=== PATIENT | male | born 1980 | race Caucasian/White ===

== ENCOUNTER 2016-08-23 19:12 | Outpatient (CLI) | payer OTHER, MEDICAID | END 2016-08-23 19:13 | disposition home or self-care (01) | LOC: LAB 19:12 | DX: Z01.89 Encounter for other specified special examinations (principal) | CPT/HCPCS: 36415 ==

== ENCOUNTER 2018-06-09 07:51 | Outpatient (CLI) | payer MEDICAID | END 2018-06-09 07:52 | disposition critical access hospital (66) | LOC: EMS 07:51 | PROVIDERS: ATTEND Surgery | DX: S05.92XA Unspecified injury of left eye and orbit, initial encounter (principal); W22.8XXA Striking against or struck by other objects, initial encounter; Y93.01 Activity, walking, marching and hiking; Y92.821 Forest as the place of occurrence of the external cause | CPT/HCPCS: A0425; A0429; A0999 ==

== ENCOUNTER 2018-06-09 08:09 | Emergency (ER) | payer MEDICAID ==
[2018-06-09] MEDS ORDERED: PROPARACAINE 0.5% OPHTH DROPS 15 ML LEFTEYE STA (08:18)
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
--- NOTE | 2018-06-09 09:15 | CT Report ---
Reason: trauma to left eye Procedure Date: 06/09/2018 Accession Number: [id number] / [id number] Procedure: CT - ORBITS WO CPT Code: FULL RESULT: EXAM: CT MAXILLOFACIAL WITHOUT CONTRAST EXAM DATE: 06/09/2018 08:57 AM. CLINICAL HISTORY: Trauma to left eye. COMPARISONS: None. TECHNIQUE: Thin-section axial images were acquired of the face without contrast. Post-processing: Coronal and sagittal reformats. Other: None. In accordance with CT protocol optimization, one or more of the following dose reduction techniques were utilized for this exam: automated exposure control, adjustment of mA and/or KV based on patient size, or use of iterative reconstructive technique. FINDINGS: Soft Tissue: The infratemporal fossa and parapharyngeal spaces are unremarkable. Orbits: Left intraocular multi-particulate foreign bodies with overall retention of the globe contours. Soft tissue swelling and possible subcutaneous air left orbit negative right eye.. Bones: No fracture or bone lesion. Temporomandibular Joints: The temporomandibular joints are symmetric and normally located. Sinuses: Normal. No mucosal thickening or fluid levels. Other: Mastoid air cells and middle ear cavities normally aerated. Nasopharyngeal soft tissues not enlarged. IMPRESSION: Multi-particulate intraocular foreign bodies left eye. RADIA
[2018-06-09 10:48] VITALS: BP 129/74
[2018-06-09] MEDS ORDERED: oxyCODONE 5 MG TABLET PO STA (11:03)
== END 2018-06-09 11:11 | disposition home or self-care (01) ==
LOC: EDUNIT# → ED 08:09
DX: S05.12XA Contusion of eyeball and orbital tissues, left eye, initial encounter (principal); W22.8XXA Striking against or struck by other objects, initial encounter; Z59.0 Homelessness
CPT/HCPCS: 70480; 99283; A9270; J3490

== ENCOUNTER 2019-04-30 02:36 | Observation (INO) | payer MEDICAID ==
[2019-04-30] MEDS ORDERED: SODIUM CHLORIDE 0.9% 1,000 ML IV ONE ×3 (02:44→04:57)
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
[2019-04-30] MEDS ORDERED: LORazepam 2 MG/ML VIAL ONE (02:46)
[2019-04-30] MEDS ORDERED: LORazepam 2 MG/ML VIAL IVP STA ×4 (02:48→09:58)
[2019-04-30 02:51] LABS: BASOPHILS # (AUTO) 0.1 10^3/uL (0.0-0.1); BASOPHILS % (AUTO) 0.3 %; EOSINOPHILS # (AUTO) 0.1 10^3/uL (0.0-0.7); EOSINOPHILS % (AUTO) 0.8 %; HGB - HEMOGLOBIN 14.9 g/dL (14.0-18.0); LYMPHOCYTES # (AUTO) 1.6 10^3/uL (1.5-3.5); MEAN CORPUSCULAR HGB CONC 32.8 g/dL (32.0-36.0); MEAN CORPUSCULAR VOLUME 97.6 fL (80.0-94.0); MONOCYTES # (AUTO) 0.9 10^3/uL (0.0-1.0); MONOCYTES % (AUTO) 5.6 %; NEUTROPHILS # (AUTO) 13.1 10^3/uL (1.5-6.6); NEUTROPHILS % (AUTO) 82.7 %; PLT - PLATELET COUNT 367 10^3/uL (130-450); RED BLOOD COUNT 4.65 10^6/uL (4.70-6.10); RED CELL DISTRIBUTION WIDTH 12.9 % (12.0-15.0); WHITE BLOOD COUNT 15.9 x10^3/uL (4.8-10.8)
[2019-04-30 03:07] LABS: ACETAMINOPHEN < 10 ug/mL (10-30); ALBUMIN 4.6 g/dL (3.2-5.5); ALBUMIN/GLOBULIN RATIO 1.7 (1.0-2.2); ALKALINE PHOSPHATASE 50 IU/L (42-121); ALT ALANINE AMINOTRANSFERASE 20 IU/L (10-60); AST ASPARTATE AMINOTRANSFERASE 29 IU/L (10-42); BILIRUBIN,TOTAL 0.7 mg/dL (0.2-1.0); BUN - BLOOD UREA NITROGEN 17 mg/dL (6-20); CALCIUM 9.5 mg/dL (8.5-10.3); CARBON DIOXIDE - CO2 27 mmol/L (21-32); CHLORIDE 100 mmol/L (101-111); CREATININE 1.5 mg/dL (0.6-1.2); GFR - MDRD 52 (>89); GLUCOSE 85 mg/dL (70-100); LIPASE 30 U/L (22-51); SALICYLATE < 6.0 mg/dL; SODIUM 140 mmol/L (135-145); TOTAL PROTEIN 7.3 g/dL (6.7-8.2)
[2019-04-30 03:13] LABS: MUDS CUTOFF CONCENTRATIONS CUTOFF CONC BELOW:
[2019-04-30 03:18] LABS: BILIRUBIN,URINE NEGATIVE (NEGATIVE); GLUCOSE, URINE (UA) NEGATIVE (NEGATIVE); KETONES,URINE (UA) NEGATIVE (NEGATIVE); LEUKOCYTE ESTERASE, URINE NEGATIVE (NEGATIVE); NITRITE,URINE NEGATIVE (NEGATIVE); OCCULT BLOOD,URINE MODERATE (NEGATIVE); PROTEIN,URINE NEGATIVE (NEGATIVE); UROBILINOGEN,URINE 0.2 (NORMAL) E.U./dL (NORMAL)
[2019-04-30 03:25] LABS: AMPHETAMINE SCREEN,URINE POSITIVE (NEGATIVE); BENZODIAZEPINES SCREEN, URINE NEGATIVE (NEGATIVE); COCAINE SCREEN URINE NEGATIVE (NEGATIVE); METHADONE SCREEN, URINE NEGATIVE (NEGATIVE); METHAMPHETAMINES SCREEN, URINE NEGATIVE (NEGATIVE); OPIATE SCREEN, URINE NEGATIVE (NEGATIVE); OXYCODONE SCREEN, URINE NEGATIVE (NEGATIVE); PROPOXYPHENE SCREEN, URINE NEGATIVE (NEGATIVE); TRICYCLIC ANTIDEPRESSANT,URINE NEGATIVE (NEGATIVE)
[2019-04-30 03:26] LABS: CLARITY,URINE CLEAR (CLEAR)
[2019-04-30 03:32] LABS: BACTERIA,URINE None Seen /HPF (None Seen); SQUAMOUS EPITHELIAL CELL,UR RARE Squamous (<= Few)
--- NOTE | 2019-04-30 04:23 | CT Report ---
Reason: altered mental status Procedure Date: 04/30/2019 Accession Number: [id number] / [id number] Procedure: CT - HEAD WO CPT Code: Final Report FULL RESULT: EXAM: CT HEAD EXAM DATE: 04/30/2019 04:16 AM. CLINICAL HISTORY: Altered mental status. COMPARISON: None. TECHNIQUE: Multiaxial CT images were obtained from the foramen magnum to the vertex. Reformats: Sagittal and coronal. IV contrast: None. In accordance with CT protocol optimization, one or more of the following dose reduction techniques were utilized for this exam: automated exposure control, adjustment of mA and/or KV based on patient size, or use of iterative reconstructive technique. FINDINGS: Parenchyma: No intraparenchymal hemorrhage. No evidence of mass, midline shift, or CT findings of infarction. Peraza-white differentiation is distinct. Extraaxial Spaces: Normal for age. No subdural or epidural collections identified. Ventricles: Normal in size and position. Sinuses and Orbits: Imaged paranasal sinuses, orbits, and mastoids show no significant abnormality. Bones: No evidence of fracture or calvarial defect. Other: None. IMPRESSION: No acute intracranial abnormalities. [facility]
--- NOTE | 2019-04-30 04:24 | XRAY Report ---
Reason: Altered, ?aspiration Procedure Date: 04/30/2019 Accession Number: [id number] / [id number] Procedure: XR - Chest 1 View X-Ray CPT Code: 02661 Final Report FULL RESULT: EXAM: CHEST RADIOGRAPHY EXAM DATE: 04/30/2019 04:18 AM. CLINICAL HISTORY: Respiratory distress COMPARISON: None. TECHNIQUE: 1 view. FINDINGS: The mediastinal and cardiac silhouettes are normal. Low lung volumes are seen without focal consolidation. There is no pleural effusion or pneumothorax. In the osseous thorax is intact. IMPRESSION: Clear lungs. [facility]
[2019-04-30 06:50] LABS: CALCIUM 8.1 mg/dL (8.5-10.3); CREATININE 1.3 mg/dL (0.6-1.2)
[2019-04-30] MEDS ORDERED: SODIUM CHLORIDE FLUSH 0.9% 10 ML SYRINGE IVP PRN ×2 (08:16→10:17)
[2019-04-30] MEDS ORDERED: SODIUM CHLORIDE FLUSH 0.9% 10 ML SYRINGE IVP SCH (09:00)
[2019-04-30] MEDS: SODIUM CHLORIDE 0.9% 1,000 ML IV SCH ×5 (11:12→22:02)
--- NOTE | 2019-04-30 11:52 | HISTORY & PHYSICAL EXAMINATION ---
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 He was brought in via his friends (roommates), for seizure like behaviors. His friends note that since drinking an unknown substance and alcohol, he soon began having seizure like twitching and shaking. He was not able to answer questions during this event. One friend states, he thinks the patient also did "acid." Upon arrival to the ED the patient was noted to be a poor historian, but admitted to taking acid earlier in the night. Per ED notes, A friend who drove him to the emergency department provides history, she states that he has been staying at her roommates house for several days and she [place] home [place] being in a [place] several hours, and she found the patient twitching and agitated and out of it, apparently he was fairly unresponsive at first so that actually started to perform CPR and cristian t he pushed them off with him. She got up in the car and drove him here and on the way and he was having erratic behavior such as grabbing at the steering wheel. He reportedly drank a beverage of some sort which may have had drugs in it, but did not know what. Labs show an elevated WBC count of 15.9, elevated MCV 97.6, elevated creatinine of 1.5, GFR 52, elevated CK of 363, that reached 1196, urine sample showed a high spec gravity of >1.030, moderate occult, urine RBC 11-25, MUDDs urine was positive for amphetamines, negative for alcohol, without any other significant labs. Vital signs on admit showed heart rate 107, B/P 150/128, respiratory rate 25, and required oxygen at 2L nasal cannula. The patient was admitted to observation for further evaluation for rhabdomyolysis. History - Past Medical History Cardiovascular: reports: None Respiratory: reports: None Neuro: reports: None Endocrine/Autoimmune: reports: None GI: reports: None ANY COMMODITY SALES DELIVERER: reports: None : reports: None HEENT: reports: Chronic vision loss (left eye blindness), Other Psych: reports: None Musculoskeletal: reports: None Derm: reports: None MRSA Hx?: No Other Past Medical History: R eye problem - Past Surgical History HEENT: reports: Detached retina repair - Family & Social History Family History Comment/Other: Unknown family history, patient has no family in the area. Nurse was called by a woman named Emily, ex-girlfriend who stated that the patient has no family nearby, has a few children, but without contact. 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 Records review show: at least 4 caffeinated drinks daily, + marijuana use, +daily tobacco use. No information on code status, patient would not answer when asked, left as a FULL code until patient wakes up. - Substance History Use: Uses substance without health or social issues: Tobacco Abuse: Recurrent use of substance despite neg consequences: Cannabis Dependence: Experiences withdrawal or developed tolerances: Tobacco, Cannabis Tobacco Details: Cigarettes - POLST Patient has POLST: No POLST Status: Full Code Meds/Allgy - Home Medications Home Medications: Ambulatory Orders Medication Instructions Recorded Confirmed No Known Home Medications 06/09/18 06/09/18 - Allergies Allergies/Adverse Reactions: Allergies Allergy/AdvReac Type Severity Reaction Status Date / Time Penicillins Allergy Respiratory Verified 06/09/18 08:17 Review of Systems - Psychiatric Psychiatric: reports: Hallucinations - All Other Systems All Other Systems: reports: Reviewed and negative - Other Findings Other Findings: Patient would not participate in ROS questions, hiccups noted on exam, no vomiting, afebrile, appears agitated and impulsive. Overall body condition is good, +tattoos. Prior Level of Functionality: Independent Exam - Vital Signs Reviewed Vital Signs: Yes Vital Signs: Vital Signs x48h Temp Pulse Pulse Resp BP BP Pulse Ox 04/30/19 11:09 36.5 C 112 H 22 104/80 99 04/30/19 10:30 110 H 18 98/55 L 98 04/30/19 10:00 118 H 24 118/74 97 04/30/19 09:30 112 H 27 H 99/60 95 04/30/19 09:00 113 H 20 86/73 L 97 04/30/19 08:30 106 H 22 99/67 96 04/30/19 08:00 105 H 22 93/63 97 04/30/19 07:00 97 18 96/53 L 17 L 04/30/19 06:30 97 19 100/55 L 99 04/30/19 06:00 99 18 97/65 99 04/30/19 05:51 97 19 101/55 L 98 04/30/19 05:00 98 16 92/50 L 99 04/30/19 04:45 99 17 98/55 L 98 04/30/19 04:00 98 20 97/61 98 - Physical Exam General Appearance: positive: Severe distress, Anxious, Lethargic Eyes Bilateral: positive: No lid inflammation ENT: positive: Dry mucous membranes Respiratory: positive: Chest non-tender, No respiratory distress Cardiovascular: positive: Regular rate & rhythm, Tachycardia Peripheral Pulses: positive: 2+ Abdomen: positive: Nml bowel sounds, Guarding Back: positive: Nml inspection Skin: positive: No rash, Warm, Dry Extremities: positive: Non-tender, Full ROM, Nml appearance, No pedal edema Neurologic/Psychiatric: positive: Weakness, Sensory loss, Slurred/abnml speech (minimally responsive) Conclusion/Plan - Problem List (1) Rhabdomyolysis Conclusion/Plan: -Labs showed an elevated CK of 363, then 701, and 1196 from the last check -May be due to post ictal from an unconfirmed seizure or from drug or alcohol withdrawal -CIWA scores remain elevated -Consequently, also with AMS, EVERT and hemodynamic instability -Continue generous IV fluids of NS @ 200 mL per hour, re-check labs in 12 hours EVERT -Unknown baseline serum creatinine -Elevated to 1.5, improved to 1.3 after IV fluids -May be due to dehydration, early rhabdomyolysis -Routine labs, generous IV fluids Hallucinations -Visual and auditory noted by nursing, noted to be grabbing things in the air, claiming there is someone in the corner of the room, and using his hand shaped as if he were holding a pen to write on the bed sheet -Continue to monitor for seizure like behaviors, CIWA scoring, IV lorazepam for agitation, 1:1 observation Encephalopathy acute -Remains non-conversational -Disorientated, will not participate in exam questions, impulsive -Monitor for improvement Amphetamine intoxication with complication -Found on urine drug screen -Patient admitted to doing acid, confirmed with friends who brought the patient to the ED -Social work consult when awake -Does not appear to be intentional drug overdose -Lorazepam IV Q2H to allow IV fluids, agitation, sitter with one-to-one assistance for continued impulsive behaviors Withdrawal syndrome -Unknown daily alcohol use -CIWA scores have been ~10-13 -IV lorazepam has been helpful in the full body rigors -Attempt to contact Emily, ex-girlfriend for more patient history -Continue CIWA protocol, symptom management Caffeine dependence -Noted on outpatient chart review Blindness of left eye -Noted on outpatient chart review Tobacco dependence -Noted on outpatient chart review Marijuana use -Noted on outpatient chart review - Lab Results Fish Bones: 04/30/19 02:40 04/30/19 06:25 Core Measures - Anticipated LOS I expect patient to be DC'd or transferred within 96 hours.: Yes - DVT/VTE - Prophylaxis VTE/DVT Device ordered at admit?: Yes VTE/DVT Prophylaxis med ordered at admit?: Yes - Stroke - Rehab Assessment Rehab services assessment to be ordered?: No Not Ordered - Medical Reason: Contraindicated - AMI - Statin at Admit Aspirin Prescribed on Admit: No Not Ordered - Medical Reason: Contraindicated
[2019-04-30] MEDS ORDERED: LORazepam 2 MG/ML VIAL IVP PRN (12:02)
[2019-04-30] MEDS ORDERED: LIDOCAINE 2% URO-JET 5 ML SYRINGE UR ONE (12:03)
[2019-04-30] MEDS ORDERED: ONDANSETRON 4 MG/2 ML VIAL IVP PRN (12:08)
[2019-04-30] MEDS ORDERED: HALOPERIDOL 5 MG/ML VIAL IVP PRN (13:31)
[2019-04-30] MEDS: LORazepam 2 MG/ML VIAL IVP PRN ×4 (13:51→23:52)
--- NOTE | 2019-04-30 15:57 | PHARMACY PROGRESS NOTE ---
- Best Possible Medication History Admit Date and Time: 04/30/19 1017 Processed by: Pharmacy Medication History completed: In progress (Patient not alert and oriented for interview, no medications fill history per insurance records, no PCP on patient's profile, per centricity "patient has no known active medications on file". it appears patient may not be taking medications at home. Will attempt again to speak to patient once A&O) As the person ultimately responsible for medication therapy, providers are able to order a medication from an existing home medication list in [facility] via the "Reconcile Routine" prior to Confirmation of that medication by desktop support consultant. Such practice is discouraged except when the physician, in their clinical judgment, deems that a medical need exists for a medication without regard to previous use.
[2019-04-30 17:44] LABS: ALBUMIN 3.4 g/dL (3.2-5.5); ALBUMIN/GLOBULIN RATIO 1.6 (1.0-2.2); BILIRUBIN,TOTAL 0.9 mg/dL (0.2-1.0); CALCIUM 7.9 mg/dL (8.5-10.3); CREATININE 1.1 mg/dL (0.6-1.2); TOTAL PROTEIN 5.5 g/dL (6.7-8.2)
[2019-04-30] MEDS: SODIUM CHLORIDE FLUSH 0.9% 10 ML SYRINGE IVP SCH (17:58)
[2019-04-30] MEDS ORDERED: METOPROLOL 5 MG/5 ML VIAL IVP PRN (18:39)
[2019-04-30] MEDS ORDERED: hydrALAZINE INJ 20 MG/ML VIAL IVP PRN (18:40)
[2019-05-01] MEDS: SODIUM CHLORIDE 0.9% 1,000 ML IV SCH ×5 (01:58→22:06)
[2019-05-01] MEDS: SODIUM CHLORIDE FLUSH 0.9% 10 ML SYRINGE IVP SCH ×3 (01:59→16:09)
[2019-05-01] MEDS: LORazepam 2 MG/ML VIAL IVP PRN ×3 (02:15→07:23)
[2019-05-01 07:04] LABS: BASOPHILS % (AUTO) 0.4 %; EOSINOPHILS # (AUTO) 0.1 10^3/uL (0.0-0.7); EOSINOPHILS % (AUTO) 1.1 %; HGB - HEMOGLOBIN 13.8 g/dL (14.0-18.0); LYMPHOCYTES # (AUTO) 1.6 10^3/uL (1.5-3.5); LYMPHOCYTES % (AUTO) 16.2 %; MEAN CORPUSCULAR HEMOGLOBIN 32.5 pg (27.0-31.0); MEAN CORPUSCULAR HGB CONC 33.2 g/dL (32.0-36.0); MEAN CORPUSCULAR VOLUME 97.9 fL (80.0-94.0); MEAN PLATELET VOLUME 8.7 fL (7.4-11.4); MONOCYTES # (AUTO) 0.7 10^3/uL (0.0-1.0); MONOCYTES % (AUTO) 7.5 %; NEUTROPHILS # (AUTO) 7.2 10^3/uL (1.5-6.6); NEUTROPHILS % (AUTO) 74.5 %; PLT - PLATELET COUNT 269 10^3/uL (130-450); RED BLOOD COUNT 4.25 10^6/uL (4.70-6.10); RED CELL DISTRIBUTION WIDTH 13.2 % (12.0-15.0); WHITE BLOOD COUNT 9.7 x10^3/uL (4.8-10.8)
[2019-05-01 07:11] LABS: INR 1.1 (0.8-1.2); PT - PROTHROMBIN TIME 12.9 secs (9.9-12.6)
[2019-05-01 07:46] LABS: ALBUMIN 3.1 g/dL (3.2-5.5); ALBUMIN/GLOBULIN RATIO 1.6 (1.0-2.2); ALKALINE PHOSPHATASE 39 IU/L (42-121); ALT ALANINE AMINOTRANSFERASE 19 IU/L (10-60); AST ASPARTATE AMINOTRANSFERASE 34 IU/L (10-42); BUN - BLOOD UREA NITROGEN 9 mg/dL (6-20); CALCIUM 7.5 mg/dL (8.5-10.3); CARBON DIOXIDE - CO2 23 mmol/L (21-32); CHLORIDE 112 mmol/L (101-111); CREATININE 1.1 mg/dL (0.6-1.2); GAMMA GLUTAMYL TRANSPEPTIDASE 6 IU/L (8-55); GFR - MDRD 75 (>89); GLUCOSE 92 mg/dL (70-100); SODIUM 139 mmol/L (135-145); TOTAL PROTEIN 5.1 g/dL (6.7-8.2)
[2019-05-01 07:47] LABS: CK- CREATINE KINASE 1138 IU/L (22-269); CRP - C-REACTIVE PROTEIN < 1.0 mg/dL (0-1.0)
[2019-05-01] MEDS ORDERED: OLANZapine 10 MG VIAL IM ONE (08:45)
[2019-05-01 09:34] LABS: ABG BASE EXCESS -4.6 mmol/L (-2.0-3.0); ABG HCO3 18.7 mmol/L (22.0-26.0); ABG PCO2 30 mmHg (34-45); ABG PH 7.41 (7.35-7.45); ABG PO2 59 mmHg (80-100); ABG TCO2 19.6 MMOL/L (21.0-29.0)
[2019-05-01 09:35] LABS: ABG OXYGEN SATURATION 92 % (94-98); ALLEN TEST POSITIVE
[2019-05-01] MEDS ORDERED: HALOPERIDOL 5 MG/ML VIAL IVP PRN (16:48)
--- NOTE | 2019-05-01 16:57 | PROVIDER PROGRESS NOTE ---
Subjective - Prog Note Date Prog Note Date: 05/01/19 Prog Note Time: 16:57 - Subjective Pt reports feeling: No change Subjective: The patient has intermittent periods of alertness, was sitting to the edge of the bed, but is still not functional, no meals today, sitter remains at the bedside. Current Medications - Current Medications Current Medications: Active Medications: Haloperidol (Haldol Inj) 0.5 mg IVP Q6H PRN Hydralazine HCl (Apresoline Inj) 10 mg IVP Q6H PRN Sodium Chloride (Normal Saline 0.9%) 1,000 mls @ 175 mls/hr IV .Q5H43M CHRISTOPHE Metoprolol Tartrate (Lopressor Inj) 5 mg IVP Q6H PRN Ondansetron HCl (Zofran Inj) 4 mg IVP Q4HR PRN No Known Home Medications Objective - Vital Signs/Intake & Output Reviewed Vital Signs: Yes Vital Signs: Vital Signs x48h Temp Pulse Resp BP BP Pulse Ox 05/01/19 16:25 36.7 C 89 20 119/82 H 99 05/01/19 13:00 36.3 C L 92 20 129/68 100 Intake & Output: Intake & Output 04/28/19 04/29/19 04/30/19 05/01/19 23:59 23:59 23:59 23:59 Intake Total 6350.000 4000 Output Total 575 1475 Balance 5775.000 2525 - Objective General Appearance: positive: Mild distress, Anxious, Lethargic, Other (Will not participate in exam questions, intermittent periods of more alertness, otherwise has been sleeping for much of the day) Eyes Bilateral: positive: No lid inflammation ENT: positive: Pharynx nml, No signs of dehydration Neck: positive: Thyroid nml, No JVD, Trachea midline Respiratory: positive: Chest non-tender, No respiratory distress, Other (diminished, bilaterally) Cardiovascular: positive: Regular rate & rhythm, No gallop, Systolic murmur Peripheral Pulses: 1+ Radial (R), 1+ Radial (L) Abdomen: positive: Non-tender, Nml bowel sounds Back: positive: Nml inspection Skin: positive: Color nml, No rash, Warm, Dry Extremities: positive: Non-tender, Full ROM, Nml appearance, No pedal edema Neurologic/Psychiatric: positive: Disoriented to person, Disoriented to place, Disoriented to time, Weakness, Sensory loss, Depressed mood/affect (flat, not responding to questions, wakes up easily to a sternal rub) Reflexes: Bicep (R): 2+, Bicep (L): 2+ - Lab Results Fish Bones: 05/01/19 06:55 05/01/19 06:55 Other Labs: Lab Results x24hrs 05/01/19 05/01/19 05/01/19 Range/Units 09:25 06:55 06:55 WBC (4.8-10.8) x10^3/uL RBC (4.70-6.10) 10^6/uL Hgb (14.0-18.0) g/dL Hct (42.0-52.0) % MCV (80.0-94.0) fL MCH (27.0-31.0) pg MCHC (32.0-36.0) g/dL RDW (12.0-15.0) % Plt Count (130-450) 10^3/uL MPV (7.4-11.4) fL Neut # (Auto) (1.5-6.6) 10^3/uL Lymph # (Auto) (1.5-3.5) 10^3/uL Carver # (Auto) (0.0-1.0) 10^3/uL Eos # (Auto) (0.0-0.7) 10^3/uL Baso # (Auto) (0.0-0.1) 10^3/uL Absolute Nucleated RBC x10^3/uL Nucleated RBC % /100WBC PT (9.9-12.6) secs INR (0.8-1.2) Bld Gas Analysis Time 0931 Sample Site 0925 ABG pH 7.41 (7.35-7.45) ABG pCO2 30 L (34-45) mmHg ABG pO2 59 L (80-100) mmHg ABG HCO3 18.7 L (22.0-26.0) mmol/L ABG Total CO2 19.6 L (21.0-29.0) MMOL/L ABG O2 Saturation 92 L (94-98) % ABG Oximetry Spot Check 93 % ABG Base Excess -4.6 L (-2.0-3.0) mmol/L Enoc Test POSITIVE Respiration Rate 22 b/min O2 Delivery Device [place] O2 Liters/Min 2.00 LPM Sodium 139 (135-145) mmol/L Potassium 3.5 (3.5-5.0) mmol/L Chloride 112 H (101-111) mmol/L Carbon Dioxide 23 (21-32) mmol/L Anion Gap 4.0 L (6-13) BUN 9 (6-20) mg/dL Creatinine 1.1 (0.6-1.2) mg/dL Estimated GFR (MDRD) 75 L (>89) Glucose 92 (70-100) mg/dL Calcium 7.5 L (8.5-10.3) mg/dL Magnesium 2.0 (1.7-2.8) mg/dL Total Bilirubin 1.0 (0.2-1.0) mg/dL GGT 6 L (8-55) IU/L AST 34 (10-42) IU/L ALT 19 (10-60) IU/L Alkaline Phosphatase 39 L (42-121) IU/L Total Creatine Kinase 1138 H* (22-269) IU/L CK-MB (CK-2) 7.5 H (0.6-6.3) ng/mL Troponin I High Sens (2.3-19.7) ng/L C-Reactive Protein < 1.0 (0-1.0) mg/dL Total Protein 5.1 L (6.7-8.2) g/dL Albumin 3.1 L (3.2-5.5) g/dL Globulin 2.0 L (2.1-4.2) g/dL Albumin/Globulin Ratio 1.6 (1.0-2.2) 05/01/19 05/01/19 04/30/19 Range/Units 06:55 06:55 17:21 WBC 9.7 (4.8-10.8) x10^3/uL RBC 4.25 L (4.70-6.10) 10^6/uL Hgb 13.8 L (14.0-18.0) g/dL Hct 41.6 L (42.0-52.0) % MCV 97.9 H (80.0-94.0) fL MCH 32.5 H (27.0-31.0) pg MCHC 33.2 (32.0-36.0) g/dL RDW 13.2 (12.0-15.0) % Plt Count 269 (130-450) 10^3/uL MPV 8.7 (7.4-11.4) fL Neut # (Auto) 7.2 H (1.5-6.6) 10^3/uL Lymph # (Auto) 1.6 (1.5-3.5) 10^3/uL Carver # (Auto) 0.7 (0.0-1.0) 10^3/uL Eos # (Auto) 0.1 (0.0-0.7) 10^3/uL Baso # (Auto) 0.0 (0.0-0.1) 10^3/uL Absolute Nucleated RBC 0.00 x10^3/uL Nucleated RBC % 0.0 /100WBC PT 12.9 H (9.9-12.6) secs INR 1.1 (0.8-1.2) Bld Gas Analysis Time Sample Site ABG pH (7.35-7.45) ABG pCO2 (34-45) mmHg ABG pO2 (80-100) mmHg ABG HCO3 (22.0-26.0) mmol/L ABG Total CO2 (21.0-29.0) MMOL/L ABG O2 Saturation (94-98) % ABG Oximetry Spot Check % ABG Base Excess (-2.0-3.0) mmol/L Enoc Test Respiration Rate b/min O2 Delivery Device O2 Liters/Min LPM Sodium (135-145) mmol/L Potassium (3.5-5.0) mmol/L Chloride (101-111) mmol/L Carbon Dioxide (21-32) mmol/L Anion Gap (6-13) BUN (6-20) mg/dL Creatinine (0.6-1.2) mg/dL Estimated GFR (MDRD) (>89) Glucose (70-100) mg/dL Calcium (8.5-10.3) mg/dL Magnesium (1.7-2.8) mg/dL Total Bilirubin (0.2-1.0) mg/dL GGT (8-55) IU/L AST (10-42) IU/L ALT (10-60) IU/L Alkaline Phosphatase (42-121) IU/L Total Creatine Kinase (22-269) IU/L CK-MB (CK-2) (0.6-6.3) ng/mL Troponin I High Sens 8.2 (2.3-19.7) ng/L C-Reactive Protein (0-1.0) mg/dL Total Protein (6.7-8.2) g/dL Albumin (3.2-5.5) g/dL Globulin (2.1-4.2) g/dL Albumin/Globulin Ratio (1.0-2.2) 04/30/19 04/30/19 Range/Units 17:21 17:21 WBC (4.8-10.8) x10^3/uL RBC (4.70-6.10) 10^6/uL Hgb (14.0-18.0) g/dL Hct (42.0-52.0) % MCV (80.0-94.0) fL MCH (27.0-31.0) pg MCHC (32.0-36.0) g/dL RDW (12.0-15.0) % Plt Count (130-450) 10^3/uL MPV (7.4-11.4) fL Neut # (Auto) (1.5-6.6) 10^3/uL Lymph # (Auto) (1.5-3.5) 10^3/uL Carver # (Auto) (0.0-1.0) 10^3/uL Eos # (Auto) (0.0-0.7) 10^3/uL Baso # (Auto) (0.0-0.1) 10^3/uL Absolute Nucleated RBC x10^3/uL Nucleated RBC % /100WBC PT (9.9-12.6) secs INR (0.8-1.2) Bld Gas Analysis Time Sample Site ABG pH (7.35-7.45) ABG pCO2 (34-45) mmHg ABG pO2 (80-100) mmHg ABG HCO3 (22.0-26.0) mmol/L ABG Total CO2 (21.0-29.0) MMOL/L ABG O2 Saturation (94-98) % ABG Oximetry Spot Check % ABG Base Excess (-2.0-3.0) mmol/L Enoc Test Respiration Rate b/min O2 Delivery Device O2 Liters/Min LPM Sodium 139 (135-145) mmol/L Potassium 3.9 (3.5-5.0) mmol/L Chloride 110 (101-111) mmol/L Carbon Dioxide 23 (21-32) mmol/L Anion Gap 6.0 (6-13) BUN 13 (6-20) mg/dL Creatinine 1.1 (0.6-1.2) mg/dL Estimated GFR (MDRD) 75 L (>89) Glucose 90 (70-100) mg/dL Calcium 7.9 L (8.5-10.3) mg/dL Magnesium (1.7-2.8) mg/dL Total Bilirubin 0.9 (0.2-1.0) mg/dL GGT (8-55) IU/L AST 35 (10-42) IU/L ALT 19 (10-60) IU/L Alkaline Phosphatase 41 L (42-121) IU/L Total Creatine Kinase 1680 H* (22-269) IU/L CK-MB (CK-2) (0.6-6.3) ng/mL Troponin I High Sens (2.3-19.7) ng/L C-Reactive Protein (0-1.0) mg/dL Total Protein 5.5 L (6.7-8.2) g/dL Albumin 3.4 (3.2-5.5) g/dL Globulin 2.1 (2.1-4.2) g/dL Albumin/Globulin Ratio 1.6 (1.0-2.2) ABX Reporting Has patient been on IV antibiotics over the past 48 hours?: No Assessment/Plan - Problem List (1) Rhabdomyolysis Impression: -Labs showed an elevated CK 1138, reduced from 1680 -CIWA scores remain elevated, but GGT negative indicating low probability of recent alcohol use -Consequently, also with AMS, EVERT and hemodynamic instability, now resolving -Continue generous IV fluids of NS @ 175 mL per hour -Re-check labs in the AM EVERT -Unknown baseline serum creatinine -Elevated to 1.5, improved to 1.3 after IV fluids, now normal today -Urinating large amounts today -Routine labs, IV fluids Hallucinations -Visual and auditory noted by nursing, much improved today -Continue to monitor for seizure like behaviors, no lorazepam since not ETOH withdrawal, 1:1 observation Encephalopathy acute -Remains non-conversational -Disorientated, will not participate in exam questions, impulsive -Monitor for improvement Amphetamine intoxication with complication -Found on urine drug screen -Patient admitted to doing acid, confirmed with friends who brought the patient to the ED -Social work consult when awake -Does not appear to be intentional drug overdose -IV fluids, IV haldol if needed (low dose), sitter with one-to-one assistance for continued impulsive behaviors Withdrawal syndrome -Unknown alcohol use, negative GGT on labs -CIWA scores have been ~10-13 -IV lorazepam is now contraindicated since likely not ETOH -Attempt to contact Emily, ex-girlfriend for more patient history -Continue [facility] protocol, symptom management Caffeine dependence -Noted on outpatient chart review Blindness of left eye -Noted on outpatient chart review Tobacco dependence -Noted on outpatient chart review Marijuana use -Noted on outpatient chart review*The patient has intermittent periods of alertness, was sitting to the edge of the bed, but is still not functional, no meals today, sitter remains at the bedside. Qualifiers: Rhabdomyolysis type: non-traumatic Qualified Code(s): M62.82 - Rhabdomyolysis
[2019-05-02] MEDS: SODIUM CHLORIDE 0.9% 1,000 ML IV SCH (03:44)
[2019-05-02] MEDS: SODIUM CHLORIDE FLUSH 0.9% 10 ML SYRINGE IVP SCH (03:44)
[2019-05-02] MEDS ORDERED: ACETAMINOPHEN 325 MG TABLET PO PRN (05:28)
[2019-05-02 08:06] VITALS: BP 118/72
--- NOTE | 2019-05-02 08:34 | Discharge Plan ---
Discharge Plan Problem Reviewed?: Yes Disposition: Home, Self Care Condition: Good Diet: Regular Activity Restrictions: No Restrictions Shower Restrictions: No Health Concerns: Rhabdomyolysis Acute kidney injury Withdrawal syndrome Plan of Treatment: Avoid substances to cause a recurrence of this episode See a doctor within one week, you last saw Zac Garcia PA-C on [address] ([facility] phone # [phone]) Care Goals: Prevent hospital stays or ED visits Get routine health check ups Assessment: The patient was admitted for a rising CK level, EVERT, indicating worsening rhabdomyolysis. He was observed for suspected overdose from an unknown substance that was reported as, he drank something, by the friends who brought him into the ED. His GGT serum labs was low normal, indicating no current or recent alcohol use. Additional Instructions or Follow Up instructions: Avoid using drugs, hydrate adequately, and follow-up with your primary care provider soon as possible within the 3-7 days. If you have any worsening symptoms such as urinating dark red or brown urine, confusion, fever, return to the emergency department. No Smoking: If you smoke, Please STOP! Call for help.
[2019-05-02 08:40] LABS: HGB - HEMOGLOBIN 15.4 g/dL (14.0-18.0); MEAN CORPUSCULAR HEMOGLOBIN 32.3 pg (27.0-31.0); MEAN CORPUSCULAR VOLUME 97.7 fL (80.0-94.0); RED BLOOD COUNT 4.77 10^6/uL (4.70-6.10); RED CELL DISTRIBUTION WIDTH 12.7 % (12.0-15.0); WHITE BLOOD COUNT 8.7 x10^3/uL (4.8-10.8)
[2019-05-02 08:41] LABS: ALBUMIN 3.1 g/dL (3.2-5.5); ALBUMIN/GLOBULIN RATIO 1.3 (1.0-2.2); BILIRUBIN,TOTAL 0.5 mg/dL (0.2-1.0); CALCIUM 8.1 mg/dL (8.5-10.3); CREATININE 1.1 mg/dL (0.6-1.2); TOTAL PROTEIN 5.4 g/dL (6.7-8.2)
--- NOTE | 2019-05-02 08:47 | DISCHARGE SUMMARY ---
Discharge Summary Admit Date: 04/30/19 Discharge Date: 05/02/19 Discharging Provider: DERICK Jc Primary Care Provider: Zac Garcia PA-C Code Status: Attempt Resuscitation Condition at Discharge: Good Discharge Disposition: 01 Home, Self Care - DIAGNOSES Admission Diagnoses: Rhabdomyolysis EVERT (acute kidney injury) Hallucinations Encephalopathy acute Amphetamine intoxication with complication Withdrawal syndrome Caffeine dependence Blindness of left eye Tobacco dependence Marijuana use Discharge Diagnoses with Status of Each Condition: Rhabdomyolysis-Present on admission, resolved EVERT (acute kidney injury)-Present on admission, resolved Hallucinations-Resolved Encephalopathy acute-Resolved Amphetamine intoxication with complication-Patient admits to "having a drug problem", refused drug treatment today, ongoing Withdrawal syndrome-Resolved, patient became alert and orientated Caffeine dependence-Chronic, stable Blindness of left eye-Chronic, stable Tobacco dependence-Chronic, stable Marijuana use-Chronic, stable Medical noncompliance-Chronic, ongoing issues, recommended to follow up with prior PCP, but patient states, "I don't remember him" - HPI History of Present Illness: Radhames Dukes is a 38-year-old white male with a past medical history of 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 He was brought in via his friends (roommates), for seizure like behaviors. His friends note that since drinking an unknown substance and alcohol, he soon began having seizure like twitching and shaking. He was not able to answer questions during this event. One friend states, he thinks the patient also did "acid." Upon arrival to the ED the patient was noted to be a poor historian, but admitted to taking acid earlier in the night. Per ED notes, A friend who drove him to the emergency department provides history, she states that he has been staying at her roommates house for several days and she returned home after being in a casino for several hours, and she found the patient twitching and agitated and out of it, apparently he was fairly unresponsive at first so that actually started to perform CPR and that he pushed them off with him. She got up in the car and drove him here and on the way and he was having erratic behavior such as grabbing at the steering wheel. He reportedly drank a beverage of some sort which may have had drugs in it, but did not know what. Labs show an elevated WBC count of 15.9, elevated MCV 97.6, elevated creatinine of 1.5, GFR 52, elevated CK of 363, that reached 1196, urine sample showed a high spec gravity of >1.030, moderate occult, urine RBC 11-25, MUDDs urine was positive for amphetamines, negative for alcohol, without any other significant labs. Vital signs on admit showed heart rate 107, B/P 150/128, respiratory rate 25, and required oxygen at 2L nasal cannula. The patient was admitted to observation for further evaluation for rhabdomyolysis. - HOSPITAL COURSE Hospital Course: The patient was admitted for a rising CK level, EVERT, indicating worsening rhabdomyolysis. He was observed for suspected overdose from an unknown substance that was reported as, he drank something, by the friends who brought him into the ED. His GGT serum labs was low normal, indicating no current or recent alcohol use. The patient's labs continued to trend down, and he became alert and orientated, so discharged back home from a friend named, Sondra. - ALLERGIES Allergies/Adverse Reactions: Allergies Allergy/AdvReac Type Severity Reaction Status Date / Time Penicillins Allergy Respiratory Verified 06/09/18 08:17 - MEDICATIONS Home Medications: Ambulatory Orders Medication Instructions Recorded Confirmed No Known Home Medications 06/09/18 06/09/18 - PHYSICAL EXAM AT DISCHARGE General Appearance: positive: No acute distress, Alert Eyes Bilateral: positive: Normal inspection, PERRL ENT: positive: ENT inspection nml, Pharynx nml, No signs of dehydration Neck: positive: Thyroid nml, No JVD, Trachea midline Respiratory: positive: Chest non-tender, No respiratory distress, Breath sounds nml Cardiovascular: positive: Regular rate & rhythm, No gallop, Systolic murmur, Decreased pulse(s) Peripheral Pulses: positive: 2+ Abdomen: positive: Non-tender, Nml bowel sounds, Other (firm, rounded) Back: positive: Nml inspection Skin: positive: Color nml, No rash, Warm, Dry, Other (tattoos, poor condition of nails, poor dentitian) Neurologic/Psychiatric: positive: Oriented x3, CN's nml (2-12), Motor nml, Sensation nml, Mood/affect nml, Weakness, Other (left eye drift-baseline blindness) Reflexes: Bicep (R): 3+, Bicep (L): 3+, Ankle (R): 4+, Ankle (L): 4+ - LABS Result Diagrams: 05/02/19 08:00 05/02/19 08:00 - FOLLOW UP Follow Up: See a doctor within one week, you last saw Zac Garcia PA-C on [address] ([facility] phone # [phone]) - TIME SPENT Time Spent in Discharge (Minutes): 55
== END 2019-05-02 09:54 | disposition home or self-care (01) ==
LOC: ED 02:36 → MS2 10:17
PROVIDERS: ADMIT Nurse Practitioner; ATTEND Nurse Practitioner
DX: M62.82 Rhabdomyolysis (principal); N17.9 Acute kidney failure, unspecified; R44.3 Hallucinations, unspecified; G93.40 Encephalopathy, unspecified; F15.129 Other stimulant abuse with intoxication, unspecified; H54.62 Unqualified visual loss, left eye, normal vision right eye; F17.210 Nicotine dependence, cigarettes, uncomplicated; F12.20 Cannabis dependence, uncomplicated
CPT/HCPCS: 36415; 36600; 51701; 70450; 71045; 80048; 80053; 80306; 80307; 80320; 80329; 81001; 82550; 82553; 82803; 82977; 83690; 83735; 84443; 84484; 85025; 85027; 85610; 86140; 93005; 96361; 96372; 96374; 96375; 96376; 99285; A9270; G0378; J2060; 81003; 87086

== ENCOUNTER 2021-07-08 06:49 | Outpatient (CLI) | payer MEDICAID | END 2021-07-08 06:50 | disposition left against medical advice (07) | LOC: EDBD → EMS 06:49 → MERGE 06:49 → EMS 06:50 | DX: Z03.89 Encounter for observation for other suspected diseases and conditions ruled out (principal) ==

== ENCOUNTER 2022-04-22 08:06 | Emergency (ER) | payer MEDICAID ==
--- NOTE | 2022-04-22 08:25 | ED Physician Documentation ---
History of Present Illness - Stated complaint Stated Complaint: GLF - Chief complaint Chief Complaint: Trauma Ext - Additonal information Additional information: Patient is a 41-year-old male presenting to the emergency department with right ankle and low back pain. Reports fell off a ladder approximately 10 feet yesterday morning. This was 24 hours ago. Does report that he struck the back of his head but denies loss of consciousness. Denies previous injuries to his right ankle. Endorses for allergy to penicillins. Last p.o. intake was this morning. Past medical significant for alcohol abuse, Hospitalization notes 04/30/2019 reviewed. At that time patient was treated for rhabdomyolysis secondary to amphetamine intoxication and LSD intoxication. 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 SYSTEMS SPECIALIST: None : None HEENT: Other Psych: None Musculoskeletal: None Derm: None - Past Surgical History Past Surgical History: No HEENT: Detached retina repair - Present Medications Home Medications: Ambulatory Orders Medication Instructions Recorded Confirmed HYDROcod/ACETAM 5/325 [Bronson 5/325] 1 - 2 ea PO Q6H PRN #14 tablet 04/22/22 Ibuprofen [Motrin] 800 mg PO Q8H PRN #30 tablet 04/22/22 - Allergies Allergies/Adverse Reactions: Allergies Allergy/AdvReac Type Severity Reaction Status Date / Time Penicillins Allergy Respiratory Verified 04/22/22 08:11 - Social History Does the pt smoke?: Yes Smoking Status: Current every day smoker Does the pt drink ETOH?: No Does the pt have substance abuse?: Yes Substance Use and Type: Marijuana, Meth - Immunizations Immunizations are current?: Yes - POLST Patient has POLST: No POLST Status: Full Code PD ED PE NORMAL - Vitals Vital signs reviewed: Yes - General General: Alert and oriented X 3, No acute distress - HEENT HEENT: Atraumatic, PERRL, EOMI, Ears normal - Neck Neck: Supple, no meningeal sign, No bony TTP - Cardiac Cardiac: RRR, No gallop - Respiratory Respiratory: No respiratory distress, Clear bilaterally - Abdomen Abdomen: Normal bowel sounds, Non tender - Back Back: No CVA TTP, No spinal TTP, Other (Tenderness to palpation along the paraspinal muscles of the sacral and lumbar spine.) - Derm Derm: Normal color - Extremities Extremities: Other (Decreased range of motion to the right ankle with obvious ecchymosis along the medial aspect of the ankle. DP and PT pulses palpable. Normal capillary refill.) Results - Vitals Vitals: Vital Signs - 24 hr 04/22/22 04/22/22 08:11 08:34 Temperature 36.7 C Heart Rate 105 H 92 Respiratory 18 18 Rate Blood Pressure 132/57 H 116/67 O2 Saturation 100 97 Oxygen O2 Source Room air PD Medical Decision Making - ED course Complexity details: reviewed results, re-evaluated patient, considered differential, d/w patient Reviewed Lab Results: No labs, independent interpretation of x-rays, negative for acute fracture or malalignment. Social Determinants of Health: History of substance abuse. Limited transportation. Drug Therapy Requiring Monitoring for Toxicity: None Procedural Risk Factors Specific to Patient: None ED course: Patient 41-year-old male presenting to the emergency department approximately 24 hours after fall with injury to his right ankle and low back. Afebrile, hemodynamically stable. He did report that he struck his head but denied loss of consciousness or use of blood thinning medications. Denies any persistent headache, nausea, vomiting or other symptoms that would be of imminent concern for intercranial injury. Given this he has a low likelihood of intracranial injury and I did not feel it was sufficient to order CT or MR imaging of the head. He was neurovascularly intact on arrival to the emergency department though there was prominent soft tissue swelling and ecchymosis to the medial aspect of his ankle. X-rays taken were negative for acute fracture. X-rays of the low back demonstrated some degenerative changes but were similarly negative for acute fracture. He was provided with Elias wrap and crutches. Pain medication was sent to his preferred pharmacy. I encouraged him to follow-up with primary care for medical recheck, particularly if his symptoms have not improved within the next 7 days. Otherwise clear return precautions were given prior to discharge. Final clinical impression: Injury to right ankle, injury to low back. Departure - Departure Disposition: 01 Home, Self Care Clinical Impression: Ankle injury Qualifiers: Encounter type: initial encounter Laterality: right Qualified Code(s): S99.911A - Unspecified injury of right ankle, initial encounter Lower back injury Qualifiers: Encounter type: initial encounter Qualified Code(s): S39.92XA - Unspecified injury of lower back, initial encounter Instructions: ED Sprain Ankle Prescriptions: Ibuprofen [Motrin] 800 mg PO Q8H PRN #30 tablet PRN Reason: PAIN &/OR FEVER HYDROcod/ACETAM 5/325 [Bronson 5/325] 1 - 2 ea PO Q6H PRN #14 tablet PRN Reason: Pain Comments: Thank you for allowing us to care for you today [facility]. The x-rays taken today do not show any fracture in your low back or ankle. Please continue to use the crutches provided here in the emergency department as needed. I recommend Elias wraps for compression as well as regular application of ice packs and elevation to decrease swelling and thereby decrease pain. I have sent a prescription for medication for pain control to your preferred pharmacy, [facility]. Please be aware that 1 of these medications, Bronson, also known as Vicodin is a strong narcotic pain medication. It has sedating side effects and should not be used if you are operating a motor vehicle, using of a machinery or you are the sole pharmacist in charge of young children. This medication cannot be refilled from the emergency department. Please make a follow-up appointment with your primary care doctor soon as possible. Your symptoms should be improving however if you experience no i mprovement over the course of the next week I recommend following up with either your primary care doctor or returning to the emergency department for medical recheck.
[2022-04-22] MEDS ORDERED: oxyCODONE 5 MG TABLET PO STA (08:27)
[2022-04-22] MEDS ORDERED: IBUPROFEN 600 MG TABLET PO STA (08:27)
[2022-04-22 08:39] VITALS: BP 116/67
--- NOTE | 2022-04-22 09:44 | XRAY Report ---
PROCEDURE: Ankle 3 View RT INDICATIONS: Fall, trauma TECHNIQUE: 3 views of the ankle were acquired. COMPARISON: None FINDINGS: Bones: No fractures or dislocations. Ankle mortise is normally aligned. No suspicious bony lesions . The talar dome demonstrates an unremarkable appearance. Soft tissues: No tibiotalar joint effusion. Achilles tendon appears normal. IMPRESSION: Normal ankle plain films. Please correlate with focal tenderness. If there is point tenderness (or other clinical concern for a fracture not seen on these plain films) then please consider a dedicated CT study or a short term fo llow up plain film series for further evaluation. Reviewed by: Jason Jarrell MD on 04/22/2022 8:42 AM [facility] Approved by: Jason Jarrell MD on 04/22/2022 8:42 AM [facility] Station ID: [id number]
--- NOTE | 2022-04-22 09:45 | XRAY Report ---
PROCEDURE: Lumbar Spine Complete INDICATIONS: Fall, trauma TECHNIQUE: 5 views of the lumbar spine were acquired, including bilateral oblique views. COMPARISON: None. FINDINGS: Bones: 5 pkt-[id number]-[id number] vertebrae are present. No vertebral body compression fractures. No susp icious bony lesions. Mild dextroconvex scoliotic curvature is seen. No significant AP alignment abnormality can be seen. There is moderate severe disc space narrowing at L5-S1. The spinal alignment and spinal curvature ar e otherwise within normal limits. Mild lower lumbar spine facet arthropathy can be seen. Soft tissues: Overlying bowel gas pattern is normal. No suspicious soft tissue calcifications. IMPRESSION: No acute plain film abnormality is seen. Mild dextroconvex scoliotic curvature is seen. Focal L5-S1 degenerative change noted. Reviewed by: Jason Jarrell MD on 04/22/2022 8:44 AM [facility] Approved by: Jason Jarrell MD on 04/22/2022 8:44 AM [facility] Station ID: [id number]
== END 2022-04-22 10:35 | disposition home or self-care (01) ==
LOC: ED 08:06
DX: S99.911A Unspecified injury of right ankle, initial encounter (principal); S39.92XA Unspecified injury of lower back, initial encounter; W11.XXXA Fall on and from ladder, initial encounter
CPT/HCPCS: 72110; 73610; 99283; 99284; A9270

== ENCOUNTER 2022-10-29 07:01 | Emergency (ER) | payer MEDICAID ==
--- OUTSIDE RECORDS SUMMARY | 2022-10-29 08:03 | EXTERNAL MEDICAL SUMMARY RPT | Continuity of Care Document ---
Author Name Unknown Address [address] [place] [address] Phone Organization [facility] [address] [place] [address] Phone Care Team Providers Care Manager Dialysis Name Role Phone Unavailable Unavailable Unavailable Jonathan Smith, Petey Unavailable Unavailabl e Procedures date description facility 2022-10-25 00:00 Visit Code Hold All Vital Signs date measurement value units 2022-10-25 00:00 BMI 22.60 kg/m2 2022-10-25 00:00 BP_diastolic 70 mmHg 2022-10-25 00:00 BP_systolic 122 mmHg 2022-10-25 00:00 heart_rate 113 /min 2022-10-25 00:00 height_metric 182.88 cm 2022-10-25 00:00 height_standard 72 in 2022-10-25 00:00 respiration_rate 18 /min 2022-10-25 00:00 temperature_metric 36.78 C 2022-10-25 00:00 temperature_standard 98.2 F 2022-10-25 00:00 weight_metric 75.3 kg 2022-10-25 00:00 weight_standard 166 lb
--- NOTE | 2022-10-29 08:36 | XRAY Report ---
PROCEDURE: Tib/Fib LT INDICATIONS: pain/?fall TECHNIQUE: 4 views of the tibia and fibula were acquired. COMPARISON: None. FINDINGS: Bones: No fractures or dislocations. No suspicious bony lesions. Soft tissues: No suspicious soft tissue calcifications or masses. IMPRESSION: No acute lower leg fracture or dislocation. Reviewed by: John Henderson MD on 10/29/2022 8:35 AM PDT Approved by: John Henderson MD on 10/29/2022 8:35 AM PDT Station ID: [id number]
--- NOTE | 2022-10-29 09:51 | ED Physician Documentation ---
PD HPI LOWER EXT INJURY - Stated complaint Stated Complaint: LT LEG PX - Chief complaint Chief Complaint: Ext Problem - History obtained from History obtained from: Patient - Additional information Additional information: Patient is a 41-year-old male presenting for evaluation of left calf pain for several days. Patient reports having a fall over the weekend. He is vague regarding the fall but denies head injury or headache. He is somewhat of a poor historian. He reports the pain is worse with ambulation. He has not taken anything for his symptoms. Denies history of PE or DVT. Denies chest pain or shortness of air. 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 : None HEENT: Other Psych: None Musculoskeletal: None Derm: None - Past Surgical History Past Surgical History: No HEENT: Detached retina repair - Present Medications Home Medications: Ambulatory Orders Medication Instructions Recorded Confirmed HYDROcod/ACETAM 5/325 [Ashley 5/325] 1 - 2 ea PO Q6H PRN #14 tablet 04/22/22 Ibuprofen [Motrin] 800 mg PO Q8H PRN #30 tablet 04/22/22 - Allergies Allergies/Adverse Reactions: Allergies Allergy/AdvReac Type Severity Reaction Status Date / Time Penicillins Allergy Respiratory Verified 04/22/22 08:11 - Social History Does the pt smoke?: Yes Smoking Status: Current every day smoker Does the pt drink ETOH?: No Does the pt have substance abuse?: Yes - Immunizations Immunizations are current?: Yes - POLST Patient has POLST: No POLST Status: Full Code PD ED PE NORMAL - General General: Alert and oriented X 3, No acute distress, Well developed/nourished - HEENT HEENT: Atraumatic - Neck Neck: Supple, no meningeal sign, No bony TTP, C-Spine cleared by NEXUS criteria - Cardiac Cardiac: RRR, Strong equal pulses - Respiratory Respiratory: No respiratory distress, Clear bilaterally - Extremities Extremities: Other (Tenderness to left calf, no appreciable swelling, negative Homans; Scabbed lesions to anterior aspects of bilateral lower legs, no cellulitic changes noted, No fluctuance, distal pulses intact) Results - Vitals Vitals: Vital Signs - 24 hr 10/29/22 10/29/22 10/29/22 07:32 09:55 10:02 Temperature 36.6 C 36.6 C 36.6 C Heart Rate 86 82 81 Respiratory 16 16 16 Rate Blood Pressure 144/88 H 144/88 H O2 Saturation 100 99 99 Oxygen O2 Source Room air PD Medical Decision Making - ED course Complexity details: reviewed results, re-evaluated patient, d/w patient ED course: Patient is a 41-year-old male presenting for evaluation of left calf pain after a fall this weekend. No signs of obvious injury on exam or swelling. No signs of cellulitis. An ultrasound was obtained which is negative for DVT. X-ray was also obtained with no fracture. Patient likely has a strain injury and was counseled on continued supportive care as well as concerning symptoms to return for. He declines need for crutches. Departure - Departure Disposition: 01 Home, Self Care Clinical Impression: Pain of left calf Condition: Stable Instructions: ED Strain Muscle Ext Follow-Up: [facility] [Provider Group] - As Needed Comments: Your x-ray does not show a broken bone and your ultrasound is also negative for a blood clot in your leg. You may have stretched or strained the muscle in this area. Continue with an Elias wrap, ice, anti-inflammatory such as acetaminophen. Return to the ER with any new concerns. Forms: PCP List Discharge Date/Time: 10/29/22 10:13
[2022-10-29 09:56] VITALS: BP 144/88; O2SAT 99
--- NOTE | 2022-10-29 09:59 | Ultrasound Report ---
PROCEDURE: Duplex Ext Veins Left INDICATIONS: pain to calf TECHNIQUE: Real-time imaging, as well as color and pulse Doppler interrogation, were performed of the lower extr emity deep veins from the inguinal ligament to the popliteal fossa. Attempted visualization of the ca lf veins was performed. COMPARISON: None. FINDINGS: The deep veins are normally compressible, and free of intraluminal thrombus. Color and pu lse Doppler demonstrate normal phasic intraluminal flow. There is normal augmentation response to di stal compression maneuver. IMPRESSION: No deep venous thrombosis of the visualized lower extremity. Reviewed by: Chi Perez on 10/29/2022 9:58 AM PDT Approved by: Chi Perez on 10/29/2022 9:58 AM PDT Station ID: [id number]
== END 2022-10-29 10:13 | disposition home or self-care (01) ==
LOC: ED 07:01
DX: M79.662 Pain in left lower leg (principal); F17.200 Nicotine dependence, unspecified, uncomplicated
CPT/HCPCS: 99283; 99284